=== PATIENT | male | born 1965 | race African-American/Black ===

== ENCOUNTER → 2016-10-17 | Outpatient (CLI) | payer OTHER ==
[~2016-10-17] MED LIST: DIOVAN160 MG PO; METOPROLOL SUCC50 MG PO
--- NOTE | ~2016-10-17 | CR172 ---
[facility] A Service of [facility] RADIOLOGY TEXT RESULTS PATIENT: NELLIE GRIFFITH LOCATION: [facility] : 61 UNIT #: [id number] AGE: [address]: DAIN CRABTREE MD SEX: M ORDER DR: [id number] [facility] [address] [place], [place] [address] [id number] O MR#: [id number] Acc #: [id number] NAME: NELLIE GRIFFITH : 1965 SEX: M STUDY DATE/TIME: 10/17/2016 15:33 UNIT: [facility] ROOM: STUDY DESCRIPTION: CR Knee 3 Views Lt Attending Physician: Dain Crabtree M.D. Referring Physician: Dain Crabtree M.D. Ordering Physician: Dain Crabtree M.D. Primary Care Physician: Dain Crabtree M.D. MEDICAL IMAGING REPORT This report is preliminary unless electronic signature is present EXAM Left knee 3 views 10/17/2016 HISTORY Left knee pain medially, laterally and posteriorly for 1 year with anterior knee swelling. No known injury. FINDINGS 3 views of the left knee demonstrate no fracture. The bones are normally mineralized and the joint space is normally maintained. Small osteophytes are seen along the posterior aspect of the patella. There is no joint effusion. IMPRESSION Minimal degenerative change involving the patellofemoral joint. Otherwise negative left knee. Dictated by... Kar Kaplan M.D. THIS IS AN ELECTRONICALLY VERIFIED REPORT Kar Kaplan M.D. at 10/19/2016 9:04 AM MAYA/roseline TD: 10/18/2016 05:55 JOB #: [id number] MEDICAL IMAGING REPORT COPY
== END | disposition home or self-care (01) ==
LOC: CRAD 15:16
DX: M25.562 Pain in left knee (principal)
CPT/HCPCS: 73562